=== PATIENT | female | born 1990 | race Two or more races ===

== ENCOUNTER 2017-05-19 12:06 | Emergency (ER) | payer MEDICAID ==
[~2017-05-19] VITALS: Ht 160 cm; Wt 59.0 kg
[2017-05-19 12:11] VITALS: BP 114/49
== END 2017-05-19 13:42 | disposition home or self-care (01) ==
LOC: ER 12:06
DX: H68.002 Unspecified Eustachian salpingitis, left ear (principal); J02.9 Acute pharyngitis, unspecified

== ENCOUNTER 2025-08-08 20:22 | Inpatient (IN) | payer MEDICAID ==
[~2025-08-08] VITALS: Ht 157.5 cm; Wt 46.8 kg
[2025-08-08] MEDS: NALOXONE HCL 0.4 MG/ML VIAL IM ONE (20:25)
[2025-08-08] MEDS: NALOXONE HCL 1MG/ML 2ML SYRINGE IV ONE ×2 (20:28→20:30)
[2025-08-08] MEDS ORDERED: NALOXONE HCL 1MG/ML 2ML SYRINGE ONE (20:29)
[2025-08-08] MEDS: NALOXONE HCL 0.4 MG/ML VIAL ONE (20:33)
[2025-08-08 20:40] VITALS: O2SAT 94
[2025-08-08 21:20] LABS: Hematocrit 36.3 % (36.0-46.0); Hemoglobin 11.9 g/dL (12.2-16.2); Mean Corpuscular Hemoglobin 30.1 pg (28.0-32.0); Mean Corpuscular Volume 91.4 fL (80.0-100.0); Nucleated Red Blood Cells % 0.2 %
--- NOTE | 2025-08-08 21:25 | ED.PDOC ---
Altered Mental Status HPI Comments 35 year old female presents to the ED with a chief complaint of overdose onset today (08/08/25). Patient was brought to ED by , states was unresponsive, patient was immediately brought back by staff. states patient was smoking marijuana and went unresponsive. Upon ED arrival, patient was cyanotic, unresponsive. She was given Narcan 4 mg IN, 0.4 mg IM, 2 mg IV, shortly after was responsive. Patient is a poor historian. No other symptoms or modifying factors present at this time. Chief Complaint: Overdose Time Seen by MD: 20:20 Primary Care Provider: NONE Reviewed Notes: Medications, Allergies Allergies: Coded Allergies: NO KNOWN ALLERGIES (Unverified , 05/19/17) Information Source: Spouse Mode of Arrival: Severity: Moderate Timing: Hours Duration: Since onset Prehospital treatment: None Recent: Medication/Drug Abuse History of: None Past Medical History PAST MEDICAL HISTORY: Denies Surgical History: Denies all surgeries DOCTOR OF PHARMACY History: No Pertinent DOCTOR OF PHARMACY History Family History Family History: Unknown Social History Smoker: Non-Smoker Alcohol: Denies ETOH Use Drugs: Marijuana Lives In: Home Constitutional: denies: chills, diaphoresis, fatigue, fever, malaise, sweats, weakness, others EENTM: denies: blurred vision, double vision, ear bleeding, ear discharge, ear drainage, ear pain, ear ringing, eye pain, eye redness, hearing loss, mouth pain, mouth swelling, nasal discharge, nose bleeding, nose congestion, nose pain, photophobia, tearing, throat pain, throat swelling, voice changes, others Respiratory: denies: cough, hemoptysis, orthopnea, SOB at rest, shortness of breath, SOB with excertion, stridor, wheezing, others Cardiovascular: denies: chest pain, dizzy spells, diaphoresis, Dyspnea on exertion, edema, irregular heart beat, left arm pain, lightheadedness, palpitations, PND, syncope, others Gastrointestinal: denies: abdomen distended, abdominal pain, blood streaked bowels, constipated, diarrhea, dysphagia, difficulty swallowing, hematemesis, melena, nausea, poor appetite, poor fluid intake, rectal bleeding, rectal pain, vomiting, others Genitourinary: denies: abnormal vagina bleeding, burning, dyspareunia, dysuria, flank pain, frequency, hematuria, incontinence, pain, , vagina discharge, urgency, others Neurological: denies: dizziness, fainting, headache, left sided numbness, left sided weakness, numbness, paresthesia, pre-existing deficit, right sided numbness, right sided weakness, seizure, speech problems, tingling, tremors, weakness, others Musculoskeletal: denies: back pain, gout, joint pain, joint swelling, muscle pain, muscle stiffness, neck pain, others Integumetry: denies: bruises, change in color, change in hair/nails, dryness, laceration, lesions, lumps, rash, wounds, others Allergic/Immunocompromised: denies: Difficulty Healing, Frequent Infections, Hives, Itching, others Hematologic/Lymphatic: denies: anemia, blood clots, easy bleeding, easy bruising, swollen glands, others Endocrine: denies: excessive hunger, excessive sweating, excessive thirst, excessive urination, flushing, intolerance to cold, intolerance to heat, unexplained weight gain, unexplained weight loss, others Psychiatric: denies: anxiety, bipolar disorder, depression, hopeless, panic disorder, schizophrenia, sleepless, suicidal, others Unable to Obtain due to: Other (overdose) All Other Systems: Reviewed and Negative Physical Exam General Appearance: Moderate Distress HEENT: Other (Pinpoint pupils on arrival) Neck: Full Range of Motion, Non-Tender, Normal, Normal Inspection Respiratory: Other (Shallow respirations on arrival) Cardiovascular: No Edema, No JVD, No Murmur, No Gallop, Normal Peripheral Pulses, Regular Rate/Rhythm Breast Exam: Deferred Gastrointestinal: No Organomegaly, Non Tender, No Pulsatile Mass, Normal Bowel Sounds, Soft Genitalia: Deferred Pelvic: Deferred Rectal: Deferred Extremities: No calf tenderness, Normal capillary refill, Normal inspection, Normal range of motion, Non-tender, No pedal edema Musculoskeletal : Apperance: Normal Neurologic: Other (Somnolent on arrival. Awake and conversant after Narcan) Cerebellar Function: Normal Reflexes: Normal Skin: Dry, Normal Color, Warm Lymphatic: No Adenopathy Was a procedure done? Was a procedure done?: No Differential Diagnosis (ALOC) Differential Diagnosis: Dehydration, Hypoglycemia, DKA, Encephalopathy, Meningitis, Sepsis, Closed Head Injury, CVA, Mass Lesion, SAH, Drug Overdose, ETOH Intoxication, Other X-Ray, Labs, Meds, VS Vital Signs Date Time Temp Pulse Resp B/P (MAP) Pulse Ox O2 Delivery O2 Flow Rate FiO2 08/09/25 02:20 48 08/08/25 21:59 66 08/08/25 20:25 97.4 130 20 111/59 100 97.4 Lab Test 08/08/25 21:50 08/08/25 21:00 Range/Units Troponin I High Sensitivity 5 6 </=34 ng/L White Blood Count 4.8 4.4-10.8 10^3/uL Red Blood Count 3.97 L 4.0-5.20 10^6/uL Hemoglobin 11.9 L 12.2-16.2 g/dL Hematocrit 36.3 36.0-46.0 % Mean Corpuscular Volume 91.4 80.0-100.0 fL Mean Corpuscular Hemoglobin 30.1 28.0-32.0 pg Mean Corpuscular Hemoglobin Concent 32.9 32.0-36.0 g/dL Red Cell Distribution Width 13.0 11.8-14.3 % Platelet Count 406 140-450 10^3/uL Mean Platelet Volume 7.0 6.9-10.8 fL Neutrophils (%) (Auto) 36.3 L 37.0-80.0 % Lymphocytes (%) (Auto) 49.6 10.0-50.0 % Monocytes (%) (Auto) 8.1 0.0-12.0 % Eosinophils (%) (Auto) 5.7 0.0-7.0 % Basophils (%) (Auto) 0.3 0.0-2.0 % Neutrophils # (Auto) 1.7 1.6-8.6 10 ^3/uL Lymphocytes # (Auto) 2.4 0.4-5.4 10 ^3/uL Monocytes # (Auto) 0.4 0-1.3 10 ^3/uL Eosinophils # (Auto) 0.3 0-0.8 10 ^3/uL Basophils # (Auto) 0 0-0.2 10 ^3/uL Nucleated Red Blood Cells 0.2 % Sodium Level 142 136-145 mmol/L Potassium Level 3.8 3.5-5.1 mmol/L Chloride Level 107 98-107 mmol/L Carbon Dioxide Level 25 20-31 mmol/L Anion Gap 10 5-15 Blood Urea Nitrogen 7 L 9-23 mg/dL Creatinine 0.57 0.550-1.02 mg/dL Glomerular Filtration Rate Calc 123 >90 mL/min BUN/Creatinine Ratio 12.3 10.0-20.0 Serum Glucose 103 74-106 mg/dL Calcium Level 9.1 8.7-10.4 mg/dL Current Medications Medications (Trade) Dose Ordered Sig/Sil Route Start Time Stop Time Status Last Admin Sodium Chloride 1,000 ml @ 1,000 mls/hr Q1H ONCE IV 08/08/25 20:45 08/08/25 21:44 DC 08/08/25 21:30 Naloxone HCl (Narcan) 0.4 mg ONCE ONCE IM 08/08/25 22:45 08/08/25 22:46 DC 08/08/25 20:25 Ondansetron HCl (Zofran) 4 mg ONCE ONCE IV 08/08/25 23:00 08/08/25 23:01 DC 08/08/25 23:32 Naloxone HCl (Narcan) 2 mg ONCE ONCE IV 08/08/25 20:30 08/08/25 23:32 DC 08/08/25 20:30 Naloxone HCl (Narcan) 4 mg ONCE ONCE IV 08/08/25 23:30 08/08/25 23:31 DC 08/08/25 20:28 Sodium Chloride 1,000 ml @ 1,000 mls/hr Q1H ONCE IV 08/08/25 23:45 08/09/25 00:44 DC 08/09/25 00:07 Sodium Chloride 1,000 ml @ 1,000 mls/hr Q1H ONCE IV 08/09/25 01:15 08/09/25 02:14 DC 08/09/25 01:16 Time of 1ST Reevaluation: 20:50 Reevaluation 1ST: Unchanged Patient Education/Counseling: Diagnosis, Treatment Family Education/Counseling: Diagnosis, Treatment SEPSIS Sepsis Screen Physician Orders Heplock Iv (08/08/25 ) Urinalysis (08/08/25 20:39) Drug Screen (08/08/25 20:39) Norepinephrine 8 Mg/250ml Kit (Levophed) (08/09/25 02:00) Vital Signs Date Time Temp Pulse Resp B/P (MAP) Pulse Ox O2 Delivery O2 Flow Rate FiO2 08/09/25 02:20 48 08/08/25 21:59 66 08/08/25 20:25 97.4 130 20 111/59 100 97.4 Laboratory Tests Test 08/08/25 21:00 White Blood Count 4.8 10^3/uL (4.4-10.8) Medications Medications Dose Ordered Sig/Sil Route Start Time Stop Time Status Last Admin Dose Admin Naloxone HCl 0.4 mg ONCE ONCE IM 08/08/25 22:45 08/08/25 22:46 DC 08/08/25 20:25 Naloxone HCl 2 mg ONCE ONCE IV 08/08/25 20:30 08/08/25 23:32 DC 08/08/25 20:30 Naloxone HCl 4 mg ONCE ONCE IV 08/08/25 23:30 08/08/25 23:31 DC 08/08/25 20:28 Ondansetron HCl 4 mg ONCE ONCE IV 08/08/25 23:00 08/08/25 23:01 DC 08/08/25 23:32 Sodium Chloride 1,000 ml @ 1,000 mls/hr Q1H ONCE IV 08/08/25 20:45 08/08/25 21:44 DC 08/08/25 21:30 Sodium Chloride 1,000 ml @ 1,000 mls/hr Q1H ONCE IV 08/08/25 23:45 08/09/25 00:44 DC 08/09/25 00:07 Sodium Chloride 1,000 ml @ 1,000 mls/hr Q1H ONCE IV 08/09/25 01:15 08/09/25 02:14 DC 08/09/25 01:16 Departure 1 Departure Time of Disposition: 02:45 Impression: Primary Impression: Accidental overdose Additional Impression: Hypotension Disposition: ADMITTED INPATIENT Admit to: Med Surg Condition: Guarded Discharged With: Self Comments 35-year-old female was smoking marijuana at home and collapsed witnessed by . Patient was shallow respirations and pinpoint pupils on arrival. Patient was given Narcan and she woke up. Patient is still feels somnolent and is been hypotensive. Patient was given IV fluids. Patient will need admission for supportive care and further workup. Critical Care Note Critical Care Time?: Yes (35 min-critical care time only) Critical care comment: Total critical care time: Approximately 36 minutes Due to a high probability of clinically significant, life threatening deterioration, the patient required my highest level of preparedness to intervene emergently and I personally spent this critical care time directly and personally managing the patient. This critical care time included obtaining a history; examining the patient; pulse oximetry; ordering and review of studies; arranging urgent treatment with development of a management plan; evaluation of patient's response to treatment; frequent reassessment; and, discussions with other providers. This critical care time was performed to assess and manage the high probability of imminent, life-threatening deterioration that could result in multi-organ failure. It was exclusive of separately billable procedures and treating other patients. Stability Stability form required: No Heart Score Heart Score: Heart Score Response (Comments) Value History N/A 0 EKG N/A 0 Age N/A 0 Risk Factors N/A 0 Troponin N/A 0 Total 0 I personally scribed for CHAD WORTHINGTON MD ([email or web address]) on 08/08/25 at 21:25. Electronically submitted by Madalyn Pozo ([email or web address]). CHAD WORTHINGTON MD Aug 08, 2025 21:25
[2025-08-08 21:28] LABS: Chloride 107 mmol/L (98-107); Potassium 3.8 mmol/L (3.5-5.1); Sodium 142 mmol/L (136-145)
[2025-08-08 21:29] LABS: Anion Gap 10 (5-15); Calcium 9.1 mg/dL (8.7-10.4); Carbon Dioxide 25 mmol/L (20-31)
[2025-08-08] MEDS: SODIUM CHLORIDE 0.9% 1,000 ML IV ONE (21:30)
[2025-08-08 21:34] LABS: BUN/Creatinine Ratio 12.3 (10.0-20.0); Blood Urea Nitrogen 7 mg/dL (9-23); Glucose 103 mg/dL (74-106)
--- NOTE | 2025-08-08 22:15 | ECG ---
[facility] Test Date: 2025-08-08 Test Time: 21:59:39 Pat Name: NOAH FAULKNER Department: [facility] ED Patient ID: [facility]-[id number] Room: [address] [place] [address] Gender: F Furnace Repairer: natacha : 1990 Requested By: MATTHEW FREEMAN Order Number: [id number] Reading MD: Luis Coulter Measurements Intervals [place] Rate: 66 P: 33 MT: 124 QRS: -12 QRSD: 109 T: 35 QT: 451 QTc: 473 Interpretive Statements Sinus rhythm Multiple ventricular premature complexes Anterior infarct, old Electronically Signed On 08-11-2025 18:42:55 PDT by Luis Coulter Please click the below link to view image of tracing.
[2025-08-08] MEDS ORDERED: NALOXONE HCL 1MG/ML 2ML SYRINGE IV ONE (22:45)
[2025-08-08] MEDS: NALOXONE HCL 0.4 MG/ML VIAL IV ONE (22:45)
[2025-08-08] MEDS: ONDANSETRON HCL 4 MG/2 ML VIAL IV ONE (23:32)
[2025-08-09] VITALS (20 sets, daily range): BP systolic 85–108; BP diastolic 38–70; PULSE 55–75; RESP 9–18; TEMP 97.9; O2SAT 94–100
[2025-08-09] MEDS: SODIUM CHLORIDE 0.9% 1,000 ML IV ONE ×2 (00:07→01:16)
[2025-08-09] MEDS: NOREPINEPHRINE 8 MG/250ML KIT 250 ML IV SCH (02:46)
[2025-08-09] MEDS: PIPERACILLIN-TAZOB 3.375GM 100 ML IV ONE (03:35)
[2025-08-09] MEDS ORDERED: NITROGLYCERIN 0.4 MG SL TAB SL PRN (04:15)
[2025-08-09] MEDS ORDERED: MORPHINE SULFATE INJ 2 MG/ml SYRG IV PRN (04:15)
--- NOTE | 2025-08-09 04:19 | DVHHP2 ---
History of Present Illness Reason for Visit: Altered mental status History of Present Illness 35-year-old female presents for evaluation of altered mental status. Patient was brought in by after she became responsive. Patient was reportedly smoking marijuana and shortly after she lost consciousness. Patient is curren tly lethargic but able to respond. She states using cocaine daily. She became unresponsive after using cocaine this afternoon. Denies shortness or breath or chest pain. Past Medical History Denies Past Surgical History Denies Family History Noncontributory Smoke: No ALCOHOL: occassional Drugs: Cocaine, Marijuana Lives: with Family Review of Systems Review of Systems Review of systems are limited due to the patient's altered mental status. Allergies: Coded Allergies: NO KNOWN ALLERGIES (Unverified , 05/19/17) Medications Current Medications Medications Dose Ordered Sig/Sil Route Start Time Stop Time Status Last Admin Dose Admin Norepinephrine Bitartrate 250 ml @ 3.75 mls/hr Q24H IV 08/09/25 02:00 08/09/25 02:46 3.75 MLS/HR Exam Vital Signs Vital Signs Date Time Temp Pulse Resp B/P (MAP) Pulse Ox O2 Delivery O2 Flow Rate FiO2 08/09/25 03:45 48 11 96/61 (73) 100 08/09/25 03:15 97.7 97.7 08/09/25 03:15 Nasal Cannula* 4 36 Exam Gen: 35-year-old female in mild distress Skin: Warm, dry, normal color and texture, no rash. HEENT: Normocephalic atraumatic, mucous membranes moist and pink. Neck: Cervical and supraclavicular nodes normal without enlargement, trachea is midline, thyroid gland is normal without masses. Pulmonary: Clear to auscultation and percussion bilaterally. Cardiac: Regular rate and rhythm. No murmur Abdomen: Soft, nontender, nondistended, bowel sounds present all 4 quadrants, no guarding, no rigidity, no organomegaly. Extremities: No cyanosis, clubbing, no edema Neuro: Cranial nerves II through XII grossly intact, normal affect and speech, no focal motor deficits. Labs/Xrays Labs Test 08/08/25 21:50 08/08/25 21:00 Range/Units Troponin I High Sensitivity 5 </=34 ng/L White Blood Count 4.8 4.4-10.8 10^3/uL Red Blood Count 3.97 L 4.0-5.20 10^6/uL Hemoglobin 11.9 L 12.2-16.2 g/dL Hematocrit 36.3 36.0-46.0 % Mean Corpuscular Volume 91.4 80.0-100.0 fL Mean Corpuscular Hemoglobin 30.1 28.0-32.0 pg Mean Corpuscular Hemoglobin Concent 32.9 32.0-36.0 g/dL Red Cell Distribution Width 13.0 11.8-14.3 % Platelet Count 406 140-450 10^3/uL Mean Platelet Volume 7.0 6.9-10.8 fL Neutrophils (%) (Auto) 36.3 L 37.0-80.0 % Lymphocytes (%) (Auto) 49.6 10.0-50.0 % Monocytes (%) (Auto) 8.1 0.0-12.0 % Eosinophils (%) (Auto) 5.7 0.0-7.0 % Basophils (%) (Auto) 0.3 0.0-2.0 % Neutrophils # (Auto) 1.7 1.6-8.6 10 ^3/uL Lymphocytes # (Auto) 2.4 0.4-5.4 10 ^3/uL Monocytes # (Auto) 0.4 0-1.3 10 ^3/uL Eosinophils # (Auto) 0.3 0-0.8 10 ^3/uL Basophils # (Auto) 0 0-0.2 10 ^3/uL Nucleated Red Blood Cells 0.2 % Sodium Level 142 136-145 mmol/L Potassium Level 3.8 3.5-5.1 mmol/L Chloride Level 107 98-107 mmol/L Carbon Dioxide Level 25 20-31 mmol/L Anion Gap 10 5-15 Blood Urea Nitrogen 7 L 9-23 mg/dL Creatinine 0.57 0.550-1.02 mg/dL Glomerular Filtration Rate Calc 123 >90 mL/min BUN/Creatinine Ratio 12.3 10.0-20.0 Serum Glucose 103 74-106 mg/dL Calcium Level 9.1 8.7-10.4 mg/dL SEPSIS Sepsis Screen Date sepsis recognized/suspect: Aug 09, 2025 Time Sepsis recognized/suspect: 314 Recent Procedure: No On Antibiotic Therapy: No Respiratory Rate >20: No Heart Rate >90: No Temp<36 C (96.8 F) or >38.3 C: No SBP <90 or MAP <65 mmHG: No New Acute Mental Status Change: No Is the patient on CPAP, BIPAP,: No Physician Orders Heplock Iv (08/08/25 ) Urinalysis (08/08/25 20:39) Drug Screen (08/08/25 20:39) Norepinephrine 8 Mg/250ml Kit (Levophed) (08/09/25 02:00) Test, Urine (08/09/25 02:49) Regular Diet (08/09/25 Breakfast) D5w/Sod Chlo 0.9% Ns (08/09/25 04:15) Basic Metabolic Panel (08/10/25 04:00) Admit (08/09/25 04:11) Ondansetron Hcl (Zofran) (08/09/25 04:15) Complete Blood Count (08/10/25 04:00) Condition: Critical (08/09/25 04:11) Bedrest With Bathroom Privileg (08/09/25 04:11) Nitroglycerin Sublingual (Ntrostat Subli (08/09/25 04:15) Morphine Sulfate Injection (08/09/25 04:15) Stat Ekg For Chest Pain (08/09/25 04:11) Notify Md Of Changes From Base (08/09/25 04:11) Equipment Service Engineer For 24 Hours (08/09/25 04:11) Emergency Dysrhythmia Protocol (08/09/25 04:11) Rhythm Strips Once Every Shift (08/09/25 04:11) Oxygen By Nasal Cannula (08/09/25 04:11) B-Type Natriuretic Peptide (08/09/25 04:11) Echo 2d Mode Cardiac Dop (08/09/25 04:11) Vital Signs Date Time Temp Pulse Resp B/P (MAP) Pulse Ox O2 Delivery O2 Flow Rate FiO2 08/09/25 03:45 48 11 96/61 (73) 100 08/09/25 03:30 59 11 99/63 (75) 99 08/09/25 03:15 97.7 63 11 100/50 (67) 94 97.7 08/09/25 03:15 94 Nasal Cannula* 4 36 08/09/25 03:00 92/57 08/09/25 02:55 89/52 08/09/25 02:46 84/51 08/09/25 02:20 48 08/08/25 21:59 66 08/08/25 20:40 94 Room Air* 0 21 08/08/25 20:25 97.4 130 20 111/59 100 97.4 Laboratory Tests Test 08/08/25 21:00 White Blood Count 4.8 10^3/uL (4.4-10.8) Medications Medications Dose Ordered Sig/Sil Route Start Time Stop Time Status Last Admin Dose Admin Naloxone HCl 0.4 mg ONCE ONCE IM 08/08/25 22:45 08/08/25 22:46 DC 08/08/25 20:25 0.4 MG Naloxone HCl 2 mg ONCE ONCE IV 08/08/25 20:30 08/08/25 23:32 DC 08/08/25 20:30 2 MG Naloxone HCl 4 mg ONCE ONCE IV 08/08/25 23:30 08/08/25 23:31 DC 08/08/25 20:28 4 MG Norepinephrine Bitartrate 250 ml @ 3.75 mls/hr Q24H IV 08/09/25 02:00 08/09/25 02:46 3.75 MLS/HR Ondansetron HCl 4 mg ONCE ONCE IV 08/08/25 23:00 08/08/25 23:01 DC 08/08/25 23:32 4 MG Piperacillin Sod/ Tazobactam Sod 100 ml @ 100 mls/hr ONCE ONCE IV 08/09/25 03:00 08/09/25 03:59 DC 08/09/25 03:35 100 MLS/HR Sodium Chloride 1,000 ml @ 1,000 mls/hr Q1H ONCE IV 08/08/25 20:45 08/08/25 21:44 DC 08/08/25 21:30 1,000 MLS/HR Sodium Chloride 1,000 ml @ 1,000 mls/hr Q1H ONCE IV 08/08/25 23:45 08/09/25 00:44 DC 08/09/25 00:07 1,000 MLS/HR Sodium Chloride 1,000 ml @ 1,000 mls/hr Q1H ONCE IV 08/09/25 01:15 08/09/25 02:14 DC 08/09/25 01:16 1,000 MLS/HR Assessment/Plan Assessment/Plan Assessment Toxic encephalopathy Substance abuse Hypotension Plan Admit the patient to ICU to the hospitalist Maintenance IV fluids Echocardiogram pending Chest x-ray pending Continue Levophed drip Total critical care time excluding procedures performed this 55 minutes. Plan discussed with: Patient My Orders Orders - ALBERTO MARTINEZ Procedure Category Date Status Time Regular Diet DIET 08/09/25 Transmitted Breakfast D5w/Sod Chlo 0.9% Ns PHA 08/09/25 Transmitted 04:15 Basic Metabolic Panel LAB 08/10/25 Verified 04:00 Admit ADMIT 08/09/25 Transmitted 04:11 Ondansetron Hcl PHA 08/09/25 Transmitted (Zofran) 04:15 Complete Blood Count LAB 08/10/25 Verified 04:00 Condition: Critical [facility] 08/09/25 Transmitted 04:11 Bedrest With Bathroom [facility] 08/09/25 Transmitted Privileg 04:11 Nitroglycerin MERGED WITH [facility] 08/09/25 Transmitted Sublingual (Ntrostat 04:15 Morphine Sulfate [facility] WITH [facility] 08/09/25 Transmitted Injection 04:15 Stat Ekg For Chest [facility] 08/09/25 Transmitted Pain 04:11 Notify Md Of Changes [facility] 08/09/25 Transmitted From Base 04:11 Equipment Service Engineer For [facility] 08/09/25 Transmitted 24 Hours 04:11 Emergency Dysrhythmia [facility] 08/09/25 Transmitted Protocol 04:11 Rhythm Strips Once [facility] 08/09/25 Transmitted Every Shift 04:11 Oxygen By Nasal RT 08/09/25 Transmitted Cannula 04:11 B-Type Natriuretic LAB 08/09/25 Transmitted Peptide 04:11 Echo 2d Mode Cardiac US 08/09/25 Transmitted DOP 04:11 Date of Service: Aug 09, 2025 Billing Provider: ALBERTO MARTINEZ Common Visit Codes: [id number] CARE 30-74 MIN ALBERTO MARTINEZ Aug 09, 2025 04:19
[2025-08-09] MEDS: D5W/SOD CHLO 0.9% 1,000 ML IV ONE (04:59)
[2025-08-09 05:00] LABS: Urine Protein, UAD TRACE (Negative)
[2025-08-09 05:03] LABS: Cannabinoid Screen, Urine Pos (NEGATIVE)
[2025-08-09] MEDS: ONDANSETRON HCL 4 MG/2 ML VIAL IV PRN (05:08)
[2025-08-09 05:10] LABS: Amphetamine Screen, Urine Neg (NEGATIVE); Barbiturate Scree,Urine Neg (NEGATIVE); Benzodiazephine Screen, Urine Neg (NEGATIVE); Cocaine Screen, Urine Pos (NEGATIVE); Opiate Scree,Urine Neg (NEGATIVE); Phencyclidine Screen, Urine Neg (NEGATIVE)
[2025-08-09] MEDS ORDERED: CALCIUM GLUC 1,000mg/50ml-NS 50 ML IV ONE (05:45)
[2025-08-09] MEDS ORDERED: SODIUM BICARB 8.4% 50Meq/50ml SYR INJ IV ONE (05:45)
[2025-08-09] MEDS ORDERED: ALBUTEROL SULF 2.5 MG/0.5ML(0.5%) NEB SOLN NEB ONE (05:45)
[2025-08-09] MEDS ORDERED: SODIUM ZIRCONIUM CYCL 10 GM PAK PO ONE (05:45)
[2025-08-09] MEDS ORDERED: InsuLIN REG 1unit/0.01ml Soln (100units/ml) IV ONE (05:45)
[2025-08-09] MEDS ORDERED: DEXTROSE (50%) 50ML SYRG IV ONE (05:45)
--- NOTE | 2025-08-09 06:40 | DVH ---
CHEST RADIOGRAPH Indication: Aspiration Technique: Single frontal view of the chest was obtained. Comparison: None FINDINGS: Lines and Tubes: None Lungs: No focal consolidation. Pleura: No effusion. No pneumothorax. Cardiomediastinal contours: Unremarkable Bones: No acute osseous abnormality. IMPRESSION: 1. No acute cardiopulmonary disease.
--- NOTE | 2025-08-09 08:00 | ECG ---
[facility] Test Date: 2025-08-09 Test Time: 02:20:46 Pat Name: NOAH FAULKNER Department: [facility] ED Patient ID: [facility]-[id number] Room: [address] [place] [address] Gender: F History Professor: natacha : 1990 Requested By: ALBERTO MARTINEZ Order Number: [id number] Reading MD: Luis Coulter Measurements Intervals [place] Rate: 48 P: 24 PA: 108 QRS: -4 QRSD: 105 T: 55 QT: 480 QTc: 429 Interpretive Statements Sinus bradycardia Short PA interval Borderline low voltage, extremity leads Electronically Signed On 08-11-2025 18:43:42 PDT by Luis Coulter Please click the below link to view image of tracing.
--- NOTE | 2025-08-09 13:29 | DVHPN2 ---
Subjective Patient denies any symptoms Reviewed: Care Plan, H&P, Labs, Medications Changes from previous H/P or p: No Changes General: Per HPI Objective Vitals Vital Signs Date Time Temp Pulse Resp B/P (MAP) Pulse Ox O2 Delivery O2 Flow Rate FiO2 08/09/25 13:00 49 14 119/59 (79) 100 08/09/25 07:30 Nasal Cannula* 2 28 08/09/25 07:30 98.4 98.4 Intake/Output Intake and Output 08/09/25 07:00 Intake Total 3200 ml Balance 3200 ml Intake IV Total 3200 ml General Appearance: Alert, Oriented X3, Cooperative HEENT: Atraumatic, PERRLA Lungs: Clear to auscultation, Normal air movement Cardiovascular: Normal S1, Normal S2 Abdomen: Normal bowel sounds, Soft, No tenderness Genitourinary: No Apparent Abnormalities Musculoskeletal: Normal sensory function Neuro: Normal gait, Normal speech Skin: Dry, Intact Psych/Mental Status: Mental status NL, Mood NL Medications Current Medications Medications Dose Ordered Sig/Sil Route Start Time Stop Time Status Last Admin Dose Admin Norepinephrine Bitartrate 250 ml @ 3.75 mls/hr Q24H IV 08/09/25 02:00 08/09/25 02:46 3.75 MLS/HR Ondansetron HCl 4 mg Q4HP PRN IV 08/09/25 04:15 08/09/25 05:08 4 MG Nitroglycerin 0.4 mg Q5MINP PRN SL 08/09/25 04:15 Morphine Sulfate 2 mg Q30M PRN IV 08/09/25 04:15 Laboratory Results Laboratory Tests 08/08/25 21:00 Chemistry Test 08/08/25 21:00 Calcium Level 9.1 mg/dL (8.7-10.4) Cardiac Markers Test 08/08/25 21:00 B-Type Natriuretic Peptide 24.71 pg/mL (0-100) Urinalysis Test 08/09/25 04:30 Urine Color Yellow (Yellow) Urine Clarity Turbid (Clear) H Urine pH 5.5 (5.0-9.0) Urine Specific [place] 1.022 (1.001-1.035) Urine Protein Trace (Negative) H Urine Ketones Negative (Negative) Urine Blood 3+ /uL (Negative) H Urine Nitrite Negative (Negative) Urine Bilirubin Negative (Negative) Urine Urobilinogen Normal mg/dL (Negative) Urine Leukocyte Esterase 2+ /uL (Negative) Urine RBC 16 /hpf (0 - 4) Urine Microscopic WBC 25 /HPF (0-5) H Urine Squamous Epithelial Cells Mod /hpf (<5) Urine Bacteria None seen /hpf (None Seen) Urine Mucus Few (None Seen) Urine Glucose Normal mg/dL (Normal) Urine Test Negative (Negative) Labs and/or images reviewed: Labs reviewed by me, Image(s) reviewed by me Assessment/Plan Assessment/Plan Impression: -polysubstance abuse with overdose -toxic metabolic encephalopathy -shock Plan: -echocardiogram preliminary results reviewed. Normal ejection fraction -IV normal saline bolus -weaned off norepinephrine drip -antiemetics -prn lorazepam for withdrawal symptoms Total time spent with patient discussing and formulating plan of care: 35 minutes. This medical document was created using an electronic medical record system with [employer] dictation system. Although this document has been carefully reviewed, there may still be some phonetic and typographical errors. These areas are purely typographical due to imperfections of the software programs, and do not reflect any compromise in the patient's medical care. Plan discussed with: Patient, Other (RN) Date of Service: Aug 09, 2025 Billing Provider: JING SHEA NP Common Visit Codes: [id number] CARE 30-74 MIN JING SHEA NP Aug 09, 2025 13:29
[2025-08-09] MEDS ORDERED: LORazepam 0.5 MG TAB PO PRN (13:30)
[2025-08-09] MEDS: SODIUM CHLORIDE 0.9% 500 ML IV ONE (14:30)
[2025-08-09] MEDS: MAGNESIUM SULFATE 1GM/100ML 100 ML IV ONE (15:00)
[2025-08-10] VITALS (35 sets, daily range): BP systolic 80–105; BP diastolic 37–72; PULSE 57–79; RESP 10–23; TEMP 97.7–97.9; O2SAT 96–100
[2025-08-10] MEDS: ACETAMINOPHEN 325 MG TAB PO PRN (02:31)
[2025-08-10 06:41] LABS: Hematocrit 29.3 % (36.0-46.0); Hemoglobin 9.9 g/dL (12.2-16.2); Mean Corpuscular Hemoglobin 30.6 pg (28.0-32.0); Mean Corpuscular Volume 90.0 fL (80.0-100.0); Nucleated Red Blood Cells % 0.1 %
[2025-08-10 06:53] LABS: Anion Gap 10 (5-15); Carbon Dioxide 25 mmol/L (20-31); Chloride 107 mmol/L (98-107); Potassium 4.1 mmol/L (3.5-5.1); Sodium 142 mmol/L (136-145)
[2025-08-10 06:55] LABS: Calcium 8.2 mg/dL (8.7-10.4)
[2025-08-10 06:59] LABS: BUN/Creatinine Ratio 12.0 (10.0-20.0); Glucose 96 mg/dL (74-106)
[2025-08-10 07:07] LABS: Blood Urea Nitrogen 6 mg/dL (9-23)
--- NOTE | 2025-08-10 09:49 | DVHPN2 ---
Subjective Patient denies any symptoms Reviewed: Care Plan, H&P, Labs, Medications Changes from previous H/P or p: No Changes General: Per HPI Objective Vitals Vital Signs Date Time Temp Pulse Resp B/P (MAP) Pulse Ox O2 Delivery O2 Flow Rate FiO2 08/10/25 08:30 59 12 102/80 (87) 100 08/10/25 08:00 97.5 97.5 08/10/25 07:40 Room Air* 0 21 Intake/Output Intake and Output 08/10/25 07:00 Intake Total 1911.25 ml Output Total 2400 ml Balance -488.75 ml Intake Oral 1200 ml IV Total 711.25 ml Output Urine Total 2400 ml # Voids 7 General Appearance: Alert, Oriented X3, Cooperative HEENT: Atraumatic, PERRLA Lungs: Clear to auscultation, Normal air movement Cardiovascular: Normal S1, Normal S2 Abdomen: Normal bowel sounds, Soft, No tenderness Genitourinary: No Apparent Abnormalities Musculoskeletal: Normal sensory function Neuro: Normal gait, Normal speech Skin: Dry, Intact Psych/Mental Status: Mental status NL, Mood NL Medications Current Medications Medications Dose Ordered Sig/Sil Route Start Time Stop Time Status Last Admin Dose Admin Norepinephrine Bitartrate 250 ml @ 3.75 mls/hr Q24H IV 08/09/25 02:00 08/09/25 17:15 22.5 MLS/HR Ondansetron HCl 4 mg Q4HP PRN IV 08/09/25 04:15 08/09/25 05:08 4 MG Nitroglycerin 0.4 mg Q5MINP PRN SL 08/09/25 04:15 Morphine Sulfate 2 mg Q30M PRN IV 08/09/25 04:15 Lorazepam 1 mg Q8HP PRN PO 08/09/25 13:30 Acetaminophen 650 mg Q6HP PRN PO 08/10/25 02:15 08/10/25 08:26 650 MG Laboratory Results Laboratory Tests 08/10/25 05:59 Chemistry Test 08/10/25 05:59 Calcium Level 8.2 mg/dL (8.7-10.4) L Urinalysis Test 08/09/25 04:30 Urine Color Yellow (Yellow) Urine Clarity Turbid (Clear) H Urine pH 5.5 (5.0-9.0) Urine Specific [place] 1.022 (1.001-1.035) Urine Protein Trace (Negative) H Urine Ketones Negative (Negative) Urine Blood 3+ /uL (Negative) H Urine Nitrite Negative (Negative) Urine Bilirubin Negative (Negative) Urine Urobilinogen Normal mg/dL (Negative) Urine Leukocyte Esterase 2+ /uL (Negative) Urine RBC 16 /hpf (0 - 4) Urine Microscopic WBC 25 /HPF (0-5) H Urine Squamous Epithelial Cells Mod /hpf (<5) Urine Bacteria None seen /hpf (None Seen) Urine Mucus Few (None Seen) Urine Glucose Normal mg/dL (Normal) Urine Test Negative (Negative) Labs and/or images reviewed: Labs reviewed by me, Image(s) reviewed by me Assessment/Plan Assessment/Plan Impression: -polysubstance abuse with overdose -toxic metabolic encephalopathy -shock Plan: Events: Continues to be on norepinephrine drip at 4 micrograms/minute -lactated Ringer's bolus, followed by LR at 100 mL/hour -wean off norepinephrine drip -antiemetics -prn lorazepam for withdrawal symptoms Critical care time spent with patient discussing and formulating plan of care: 40 minutes. This does not include time spent performing procedures. This medical document was created using an electronic medical record system with [employer] dictation system. Although this document has been carefully reviewed, there may still be some phonetic and typographical errors. These areas are purely typographical due to imperfections of the software programs, and do not reflect any compromise in the patient's medical care. Plan discussed with: Patient, Other (RN) My Orders Orders - JING SHEA NP Procedure Category Date Status Time Lorazepam Tablet PHA 08/09/25 In Process (Ativan Tablet) 13:30 Date of Service: Aug 10, 2025 Billing Provider: JING SHEA NP Common Visit Codes: [id number] CARE 30-74 MIN JING SHEA NP Aug 10, 2025 09:49
[2025-08-10] MEDS: LACTATED RINGER'S 1,000 ML IV ONE (10:12)
[2025-08-10] MEDS: LACTATED RINGER'S 1,000 ML IV SCH (11:39)
[2025-08-11] MEDS: MIDODRINE HCL 10 MG TAB PO SCH (06:17)
[2025-08-11 08:00] VITALS: PULSE 60; RESP 12; TEMP 98; O2SAT 100
--- NOTE | 2025-08-11 11:00 | DVHPN2 ---
Subjective ALERT,AWAKE.looks rested/no complaints/insists on going home Reviewed: Care Plan, H&P, Labs, Medications Changes from previous H/P or p: No Changes General: Per HPI Objective Vitals Vital Signs Date Time Temp Pulse Resp B/P (MAP) Pulse Ox O2 Delivery O2 Flow Rate FiO2 08/11/25 08:00 98.0 60 12 106/48 (67) 100 98.0 08/11/25 08:00 Room Air* 0 21 Intake/Output Intake and Output 08/11/25 07:00 Intake Total 1400 ml Balance 1400 ml IV Total 1400 ml General Appearance: Alert, Oriented X3, Cooperative HEENT: Atraumatic, PERRLA Lungs: Clear to auscultation, Normal air movement Cardiovascular: Normal S1, Normal S2 Abdomen: Normal bowel sounds, Soft, No tenderness Genitourinary: No Apparent Abnormalities Musculoskeletal: Normal sensory function Neuro: Normal gait, Normal speech Skin: Dry, Intact Psych/Mental Status: Mental status NL, Mood NL Medications Current Medications Medications Dose Ordered Sig/Sil Route Start Time Stop Time Status Last Admin Dose Admin Ondansetron HCl 4 mg Q4HP PRN IV 08/09/25 04:15 08/09/25 05:08 4 MG Nitroglycerin 0.4 mg Q5MINP PRN SL 08/09/25 04:15 Morphine Sulfate 2 mg Q30M PRN IV 08/09/25 04:15 Lorazepam 1 mg Q8HP PRN PO 08/09/25 13:30 Acetaminophen 650 mg Q6HP PRN PO 08/10/25 02:15 08/11/25 04:34 650 MG Midodrine 10 mg TID@0600,1200,1800 PO 08/11/25 06:00 08/11/25 06:17 10 MG Laboratory Results Laboratory Tests 08/10/25 05:59 Urinalysis Test 08/09/25 04:30 Urine Color Yellow (Yellow) Urine Clarity Turbid (Clear) H Urine pH 5.5 (5.0-9.0) Urine Specific [place] 1.022 (1.001-1.035) Urine Protein Trace (Negative) H Urine Ketones Negative (Negative) Urine Blood 3+ /uL (Negative) H Urine Nitrite Negative (Negative) Urine Bilirubin Negative (Negative) Urine Urobilinogen Normal mg/dL (Negative) Urine Leukocyte Esterase 2+ /uL (Negative) Urine RBC 16 /hpf (0 - 4) Urine Microscopic WBC 25 /HPF (0-5) H Urine Squamous Epithelial Cells Mod /hpf (<5) Urine Bacteria None seen /hpf (None Seen) Urine Mucus Few (None Seen) Urine Glucose Normal mg/dL (Normal) Urine Test Negative (Negative) Labs and/or images reviewed: Labs reviewed by me, Image(s) reviewed by me Assessment/Plan Assessment/Plan aloc/metabolic encephalopathy from drog/coccaine overdose-back to baseline coccaine addiction- offered rehab/declines not interested/advised of complications-voiced understanding marijuana abuse ambulatory status Plan discussed with: Patient, Other Date of Service: Aug 11, 2025 Billing Provider: RITIKA TOLEDO MD Common Visit Codes: [id number] INP/OBS CARE(HIGH) RITIKA TOLEDO MD Aug 11, 2025 11:00
[2025-08-11 12:45] VITALS: BP 96/48; PULSE 79; RESP 13; O2SAT 99
--- NOTE | 2025-08-11 14:09 | DVHSR ---
APPROVED REPORT EXAM: Two-dimensional and M-mode echocardiogram with Doppler and color Doppler. Blood Pressure: 92/58 mmHg INDICATION Hypotension, cocaine user RISK FACTORS Height: 62, Weight: 105 DIMENSIONS LVDd3.8 (3.8-5.7cm)LA (2D)3.6 (1.9-4.0cm)Aortic Root2.4 (2.0-3.7cm) LVDs2.5 (2.5-4.0cm)LA (MM) (1.9-4.0cm)Aortic Cusp Exc1.7 (1.5-2.0cm) EF (%) 63.0 (55-70%)Rt. Atrium3.3 (1.9-4.0cm)Asc. Aorta cm IVSd0.8 (0.7-1.1cm)RV (D) (1.8-2.4cm) PWd0.8 (0.7-1.1cm) Mitral Valve MitralMitral Stenosis E wave1.03m/sMV Mean GR.mmHg A wave0.49m/sMV Peak GR.87mmHg E/A ratio2.12D MVAcm2 DECEL Arpi440wsTTACT 1/2 [place] Aortic Valve Aortic ValveAortic Stenosis V10.85m/Pilar Mean GR.2mmHg V20.96m/Pilar Peak GR.4mmHg LVOT Diameter1.9 (1.8-2.4cm)Doppler AVA2.51cm2 Pulmonic Valve V21.13m/s Conclusion Technically good study. Sinus rhythm. Normal chamber sizes. Normal valves. EF of 60% with normal RV function. Dopplers unremarkable. No pericardial effusion masses or vegetations discernible
--- NOTE | 2025-08-12 10:32 | ECG ---
[facility] Test Date: 2025-08-09 Test Time: 14:22:09 Pat Name: NOAH FAULKNER Department: [facility] ED Patient ID: [facility]-[id number] Room: [address] [place] [address] Gender: F Chief Jailer: YULIYA : 1990 Requested By: CHAD WORTHINGTON Order Number: [id number] Reading MD: Luis Coulter Measurements Intervals [place] Rate: 76 P: -6 MD: 117 QRS: -10 QRSD: 100 T: 56 QT: 444 QTc: 500 Interpretive Statements Sinus rhythm Ventricular bigeminy Borderline short MD interval Low voltage, precordial leads Electronically Signed On 08-12-2025 17:00:46 PDT by Luis Coulter Please click the below link to view image of tracing.
== END 2025-08-11 15:54 | disposition left against medical advice (07) | DRG 816 ==
LOC: ER 20:22 → OVERFLOW 08-09 04:11
PROVIDERS: ADMIT Nurse Practitioner Acute Care; ATTEND Nurse Practitioner Acute Care
DX: T40.5X1A Poisoning by cocaine, accidental (unintentional), initial encounter (principal); G92.8 Other toxic encephalopathy; R57.9 Shock, unspecified; F19.10 Other psychoactive substance abuse, uncomplicated; F12.10 Cannabis abuse, uncomplicated; Z53.29 Procedure and treatment not carried out because of patient's decision for other reasons
CPT/HCPCS: 36415; 71045; 80048; 80307; 81001; 81025; 83880; 85025; 93005; 93306; 96361; 96374; 96375; 99291; G0378; J2405; J2543